=== PATIENT | female | born 1955 | race Caucasian/White ===

== ENCOUNTER 2023-09-03 11:42 | Outpatient (CLI) | payer MEDICARE, SELFPAY ==
--- NOTE | 2023-09-03 11:49 | XRR_ITS ---
PROCEDURE INFORMATION: Exam: XR Chest Exam date and time: 09/03/2023 11:51 AM Age: 68 years old Clinical indication: Cough TECHNIQUE: Imaging protocol: Radiologic exam of the chest. Views: 2 views. COMPARISON: CR XR chest 1V [id number] 03/16/2018 4:28 PM FINDINGS: Lungs: Right lower lobe patchy consolidative opacities. Prominent bronchovascular markings. Pleural spaces: No pleural effusion. No pneumothorax. Heart/Mediastinum: No cardiomegaly. Bones/joints: No acute findings. XR/XR chest 2V* [id number] IMPRESSION: Right lower lobe consolidation.
== END 2023-09-03 11:43 | disposition home or self-care (01) ==
PROVIDERS: PCP Family Medicine; Visit Provider Family Medicine
DX: R05.9 Cough, unspecified (principal)
CPT/HCPCS: 71046

== ENCOUNTER 2023-09-11 07:46 | Outpatient (CLI) | payer MEDICARE, SELFPAY ==
--- NOTE | 2023-09-11 08:00 | CT_ITS ---
WS: [id number] CT chest w con* [id number] HISTORY: consolidation on cxr TECHNIQUE: Axial imaging performed through the thorax. Coronal and sagittal reformats are submitted. All CT scans at [facility] use at least one of these dose optimization techniques: automated exposure control; mA and/or kV adjustment per patient size (includes targeted exams where dose is mat ched to clinical indication); or iterative reconstruction. CONTRAST: Omnipaque 350; 100 mL IV. DLP: 653.27 mGy.cm COMPARISON: Chest radiograph 09/03/2023 Lungs and central airway: Hyperexpanded lungs. Centrilobular emphysema. Multifocal areas of interstit ial consolidation in the periphery of the RIGHT lower lobe and to a lesser extent the RIGHT middle lo be. Linear atelectasis in the medial LEFT lower lobe. These patchy opacifications correspond to the r adiographic abnormality. No masses. Pleura: Normal. No pleural effusion. Heart and pericardium: Mild LEFT heart enlargement. Mediastinum and neena: Mildly prominent lymphoid tissue at the hilar regions measuring up to 13 mm. Pr obably reactive based upon the appearance of the lungs. Vessels: Very mild atherosclerosis aorta. Normal size pulmonary artery. No central filling defects or pulmonary emboli. Chest wall and lower neck: No soft tissue masses. Upper abdomen: Cholelithiasis without acute cholecystitis. 13 mm low-attenuation LEFT adrenal mass mo st consistent with an adenoma. RIGHT adrenal gland is negative. Osseous structures: Mild degenerative disc disease throughout the thoracic spine. No destructive bone lesions. IMPRESSION: 1. Subsegmental opacifications in the RIGHT middle and RIGHT lower lobes. No dense areas of consolida tion. Most consistent with pneumonitis. 2. Mildly reactive hilar lymph nodes. 3. Cholelithiasis without acute cholecystitis. 4. Mild LEFT heart enlargement. 5. No central pulmonary embolism.
[2023-09-11 08:29] LABS: Blood Urea Nitrogen 22 mg/dL (8-23); Glomerular Filtration Rate 61.9 mL/min (90-130)
[2023-09-11] MEDS: iohexol 350 mg/mL 500 mL Btl (per mL) IV (08:44)
== END 2023-09-11 07:47 | disposition home or self-care (01) ==
LOC: RAD 07:46
PROVIDERS: PCP Family Medicine; Visit Provider Family Medicine
DX: R93.89 Abnormal findings on diagnostic imaging of other specified body structures (principal); R91.8 Other nonspecific abnormal finding of lung field; R05.9 Cough, unspecified; I51.7 Cardiomegaly
CPT/HCPCS: 71260; 82565; 84520; Q9967

== ENCOUNTER → 2023-10-07 10:52 | Outpatient (BNVA) | payer MEDICARE, SELFPAY | PROVIDERS: PCP Family Medicine; Visit Provider Family Medicine | DX: J18.9 Pneumonia, unspecified organism (principal); J06.9 Acute upper respiratory infection, unspecified | CPT/HCPCS: 80048; 83880; 85025; 86140 ==

== ENCOUNTER 2023-10-13 08:11 | Outpatient (CLI) | payer MEDICARE, SELFPAY ==
--- NOTE | 2023-10-13 08:45 | USCV_ITS ---
Bell Rousseau Age: 68 Gender: F : 1955 Exam Date: 10/13/2023 09:08 Ordering Phys: Ajit Louise MD Technologist: Rachel Hinkle Exam Location: [facility] [place] Indication: Increase in SOB BP: 136 / 88 HR: 82 Rhythm: Other Technical Quality: Adequate MEASUREMENTS (Male / Female) Normal Values 2D ECHO LV Diastolic Diameter PLAX 5.3 cm 4.2 - 5.9 / 3.9 - 5.3 cm LV Systolic Diameter PLAX 4.2 cm IVS Diastolic Thickness 1.9 cm 0.6 - 1.0 / 0.6 - 0.9 cm IVS Systolic Thickness 2.3 cm LVPW Diastolic Thickness 1.5 cm 0.6 - 1.0 / 0.6 - 0.9 cm LVPW Systolic Thickness 2.4 cm LVOT Diameter 2.2 cm LV Ejection Fraction 2D Teich 44.5 % LV Ejection Fraction MOD 2C 39.0 % LV Ejection Fraction 2C AL 38.2 % LA Diameter 4.3 cm LA Width 4.1 cm LA Height 5.4 cm RA Width 3.7 cm RA Height 4.9 cm Aorta at Sinotubular Diameter 2.0 cm IVC Diameter 1.6 cm M-MODE Aortic Annulus Diameter 2.8 cm LA Ao Ratio MM 1.4 MV E Point Septal Separation 1.3 cm DOPPLER AV Peak Velocity 146.0 cm/s LVOT Peak Velocity 79.0 cm/s AV Area Cont Eq vti 2.4 cm squared AV Area Cont Eq pk 2.0 cm squared MV Area PHT 3.9 cm squared Mitral E to A Ratio 0.7 MV E' Velocity 87.0 cm/s TR Peak Velocity 147.3 cm/s TR Peak Gradient 8.7 mmHg Right Atrial Pressure 5.0 mmHg Pulmonary Artery Systolic Pressu 13.7 mmHg PV Peak Velocity 97.0 cm/s RV Acceleration Time 0.1 s RV Ejection Time 0.3 s RV AcT/ET 0.4 FINDINGS Left Ventricle Diffuse hypokinesia of the left-ventricular. Mild to moderate concentric left-ventricular hypertrophy. LV ejection fraction around 39%.Grade I/IV diastolic dysfunction (abnormal relaxation filling pattern), normal to mildly elevated filling pressures. Right Ventricle Possibly of normal size and ejection fraction Right Atrium Possibly of normal size Left Atrium Mildly increased left atrial size. Mitral Valve Thickened mitral valve. Moderate mitral valve regurgitation. Aortic Valve Thickened aortic valve. Tricuspid Valve No gross abnormalities noted Pulmonic Valve Pulmonic valve not well visualized. Pericardium Normal pericardium without effusion. Aorta Normal aortic annulus size. IVC Normal inferior vena cava. CONCLUSIONS Diffuse hypokinesia of the left-ventricular. Mild to moderate concentric left-ventricular hypertrophy. LV ejection fraction around 39%. Grade I/IV diastolic dysfunction (abnormal relaxation filling pattern), normal to mildly elevated filling pressures. The right-sided structures were not seen well. No gross abnormalities were noted. Mildly increased left atrial size. Thickened mitral valve. Moderate mitral valve regurgitation. Thickened aortic valve. There is no pericardial effusion. No similar previous studies are available for comparison Dr Amy Matt MD [facility] (Electronically Signed) Final Date: 13 October 2023 10:21 S
== END 2023-10-13 08:12 | disposition home or self-care (01) ==
PROVIDERS: PCP Family Medicine; Visit Provider Family Medicine
DX: R07.9 Chest pain, unspecified (principal); R06.00 Dyspnea, unspecified; R79.89 Other specified abnormal findings of blood chemistry; I08.0 Rheumatic disorders of both mitral and aortic valves
CPT/HCPCS: 93306

== ENCOUNTER → 2023-11-25 15:41 | Outpatient (BNVA) | payer MEDICARE, SELFPAY | PROVIDERS: PCP Family Medicine; Referring Provider Family Medicine; Visit Provider Internal Medicine Cardiovascular Disease | DX: I50.22 Chronic systolic (congestive) heart failure (principal); I25.5 Ischemic cardiomyopathy | CPT/HCPCS: 36415; 83880; 99205 ==

== ENCOUNTER 2023-12-02 06:39 | Outpatient (CLI) | payer MEDICARE, SELFPAY ==
[2023-12-02 06:59] VITALS: BMI 34.5
--- NOTE | 2023-12-02 07:05 | ECG_ITS ---
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 Interpretive Statements NAME OF STUDY: LEXISCAN SESTAMIBI STRESS TEST INDICATION: CHF RESULTS TO Lew JACINTO PROCEDURE: At the baseline, the EKG revealed sinus rhythm with a second-degree type I AV block, PVCs and short runs of PAT's. Left bundle branch block. The baseline heart was 73 bpm with a blood pressue of 136/94 mm of Hg Lexiscan was infused over a period of 20 seconds. A total of 0.4 milligrams of Lexiscan was infused. The stress phase was continued for a total of 5 minutes. Heart rate at the end of the stress phase was 73 bpm with a blood pressure 138/81 mm of Hg. The EKG at the peak infusion revealed sinus rhythm with a borderline first-degree AV block and left bundle branch block pattern. Some PVCs were noted during the Lexiscan infusion.. Sestamibi was injected 20 seconds after the Lexiscan infusion. Heart rate at the end of the recovery phase was 71 bpm with a blood pressure of 131/83 mm of Hg. CONCLUSION: 1. The EKG changes with the LexiScan infusion is uninterpretable due to the baseline left bundle branch block pattern 2. No LexiScan induced chest pain or cardiac arrhythmia 3. Normal blood pressure and heart rate response 4. Sestamibi/sestamibi perfusion scan pending; see separate report. Electronically Signed On 12-08-2023 9:20:16 FLIGHT ENGINEER INSTRUCTOR by Amy Matt M.D. [id number]
--- NOTE | 2023-12-02 07:05 | NMCV_ITS ---
NM aston perf SPECT r/s* [id number] Bell Rousseau Age: 68 Gender: F : 1955 Exam Date: 12/02/2023 07:56 Ordering Phys: Amy Matt MD ([email or web address]) Technologist: CARINE Patton Exam Location: [facility] Indications: CORONARY ANGIOPLASTY STATUS STRESS TEST [facility] IMAGE PROTOCOL Rest/Stress 1 Lexiscan Day Radiopharmaceutical Dose (mCi) Administration Site Administered by Rest: Tc-99m 10.9 IV CARINE Saleem Sestamibi Stress:Tc-99m 33.0 IV CARINE Saleem Sestamibi Rest: 60 Discovery 630 Stress: 30 Discovery 630 0.4mg Lexiscan. Supine position only as patient was unable to lay prone. SPECT RESULTS Technical Quality: Excellent Raw Data Analysis: Normal Image Corrections: No attenuation or motion correction applied Summed Stress Score: 4 Summed Rest Score: 5 Summed Difference Score: 0 PERFUSION FINDINGS Moderate area of moderately decreased tracer uptake in the mid and apical anterior, mid inferior and LV apical regions. No significant reversibility was noted in these regions. FUNCTIONAL RESULTS (calculated via Gated SPECT) Stress Image LV EF (%): 20 Stress EDV (mL):323 TID: 1.11 Stress ESV (mL):257 FUNCTIONAL FINDINGS: Segmental wall motion analysis revealed severe diffuse hypokinesia of the left ventricle. IMPRESSIONS 1. Myocardial perfusion imaging revealing moderate area of moderately decreased persistent tracer uptake involving the anterior, inferior and apical regions, suggesting myocardial scarring versus attenuation artifact. 2. Diminished LV ejection fraction 20%. 3. Severe diffuse hypokinesia of the left ventricle. 4. Markedly dilated LV cavity with an end-systolic volume of 257 ml. The above features may suggest a nonischemic form of cardiomyopathy. No similar previous studies are available for comparison Dr Amy Matt MD [facility] (Electronically Signed) Final Date: 02 December 2023 16:46 S
[2023-12-02] MEDS: regadenoson 0.4 Mg/5 ml Syringe 0.400000000000000022 MG IVP (08:34)
[2023-12-02 08:55] VITALS: BP 133/81; PULSE 71
== END 2023-12-02 06:40 | disposition home or self-care (01) ==
PROVIDERS: PCP Family Medicine; Visit Provider Internal Medicine Cardiovascular Disease
DX: Z98.61 Coronary angioplasty status (principal)
CPT/HCPCS: 36415; 78452; 93017; 96374; A9500; J2785